=== PATIENT | female | born 1990 | race Caucasian/White ===

== ENCOUNTER 2020-01-28 04:59 | Inpatient (IN) | payer BC, MEDICAID, SELFPAY ==
[2020-01-28] VITALS (48 sets, daily range): BP systolic 62–123; BP diastolic 50–77; PULSE 85–125; RESP 16; TEMP 36.7–37.4; O2SAT 99–100; BMI 27.2
--- NOTE | 2020-01-28 04:59 | LDADM ---
This patient, Patricia Arriaga, was admitted to Labor/Delivery/Recovery 106 on 01/28/20 at 04:59. Plans for labor, pain management and were discussed with patient. Patient/family oriented to hospital policies and general routines including ID bracelet, bed and alarms, visiting hours, pain management, procedures, bathroom and other care routines, personal items, smoking policy, room service/diet and guest tray routines, infant security routines, and visiting hours. Patient/Family are encouraged to report perceived risks to care and to ask questions if they do not understand what they are told or what they should do. See OBIX for further documentation.
[2020-01-28 05:41] LABS: Basophils Absolute Auto 0.1 K/mm3 (0.0-0.1); Basophils Percent Auto 0.4 % (0.2-1.2); Eosinophils Absolute Auto 0.1 K/mm3 (0-0.3); Eosinophils Percent Auto 1.2 % (0-4.4); Hemoglobin 11.4 g/dL (12.0-15.0); Immature Granulocyte Absolute 0.19 K/mm3 (0.00-0.031); Immature Granulocyte Percent A 1.6 % (0-0.5); Lymphocytes Percent Auto 20.2 % (18.3-44.2); Mean Corpuscular HGB Conc 33.5 g/dl (32-36); Mean Corpuscular Hemoglobin 30.5 pg (26-34); Mean Corpuscular Volume 90.9 fl (80-100); Monocytes Absolute Auto 0.9 K/mm3 (0.1-0.6); Monocytes Percent Auto 7.8 % (2.6-8.5); Neutrophils Absolute Auto 8.2 K/mm3 (1.3-6.7); Neutrophils Percent Auto 68.8 % (45.5-73.1); Platelet Count Result 249 k/mm3 (150-375); Red Blood Count 3.74 M/mm3 (4.2-5.4); White Blood Count 11.9 K/mm3 (4.5-10.0)
[2020-01-28] MEDS: LACTATED RINGERS 1,000 ML 125 ML IV CONT ×2 (05:47→08:58)
[2020-01-28 07:21] LABS: Rapid Plasma Reagin Non-Reactive (NonReactive)
--- NOTE | 2020-01-28 08:20 | WPDOBADMIT ---
Obstetrics - Admit Note Admission Note: record reviewed. No pertinent additions to the history and/or any subsequent changes in the physical findings that are not consistent with the expected course of the were found. AROM clear fluid /-2 vertex Additions to the history and/or subsequent changes in the physical findings follow. None.
--- NOTE | 2020-01-28 09:15 | P.PNAN_ITS ---
Anes - Initial Pre Proc Eval Date/Time: 01/28/20 09:15 Surgeon: Mukesh Buchanan MD Pre Op Diagnosis: iol Patient Data Age: 29 Gender: F Height: 1.57 m Weight: 67.5 kg Allergies Allergy/AdvReac Type Severity Reaction Status Date / Time cefaclor Allergy Mild HIVES Verified 01/28/20 06:13 Home Medications Medication Instructions Recorded Confirmed Type PNV cmb#95-ferrous fumarate-FA 1 tablet PO DAILY 01/11/20 01/28/20 History [] cholecalciferol (vitamin D3) 5,000 unit PO 2XW 01/11/20 01/28/20 History [Vitamin D3] ferrous sulfate 325 mg PO DAILY 01/11/20 01/28/20 History Laboratory Tests 01/28/20 01/28/20 01/28/20 05:35 05:35 05:35 WBC 11.9 K/mm3 H K/mm3 (4.5-10.0) RBC 3.74 M/mm3 L M/mm3 (4.2-5.4) Hgb 11.4 g/dL L g/dL (12.0-15.0) Hct 34.0 % L % (37.0-47.0) MCV 90.9 fl fl (80-100) MCH 30.5 pg pg (26-34) MCHC 33.5 g/dl g/dl (32-36) RDW 14.0 % % (11.5-14.5) Plt Count 249 k/mm3 k/mm3 (150-375) MPV 10.0 fl fl (7.4-10.4) Immature Gran % (Auto) 1.6 % H % (0-0.5) Neut % (Auto) 68.8 % % (45.5-73.1) Lymph % (Auto) 20.2 % % (18.3-44.2) Crockett % (Auto) 7.8 % % (2.6-8.5) Eos % (Auto) 1.2 % % (0-4.4) Baso % (Auto) 0.4 % % (0.2-1.2) Lymph # (Auto) 2.40 K/mm3 K/mm3 (0.9-3.2) Crockett # (Auto) 0.9 K/mm3 H K/mm3 (0.1-0.6) Eos # (Auto) 0.1 K/mm3 K/mm3 (0-0.3) Baso # (Auto) 0.1 K/mm3 K/mm3 (0.0-0.1) Abs Immat Gran (auto) 0.19 K/mm3 H K/mm3 (0.00-0.031) Absolute Neuts (auto) 8.2 K/mm3 H K/mm3 (1.3-6.7) Absolute Nucleated RBC 0.0 K/mm3 K/mm3 (0.0-0.012) Nucleated RBC % 0.0 % % (0.0-0.2) RPR Non-reactive (NonReactive) Blood Type O Negative Antibody Screen Negative Patient hx anesthesia problems: post op nausea/vomiting Family hx anesthesia problems: none [facility] Family History Family History (Updated 01/11/20 @ 15:31 by Dasha Villegas RN) Other Unknown family medical history Social History Social History Smoking status: Never smoker Substance use: never Spiritual care concerns: No Anes - Eval Final PreProcedure Day of Procedure 01/28/20 09:15 Patient weight: overweight Heart: regular rate and rhythm Lungs: clear to auscultation and normal air movement Airway: Mallampati scale class II Neurological: alert and oriented Last oral intake: >/= 8 hours ASA classification: II Emergent: no Anesthetic plan: proceed Anesthesia type and monitoring: regional epidural Informed Consent: The patient's anesthetic plan and its attendant risks and benefits were discussed with the patient/family/POA. Questions were solicited and answers provided to the satisfaction of the patient/family/POA.
[2020-01-28] MEDS: ONDANSETRON INJ 4 MG/2 ML VIAL IV PUSH (10:40)
--- NOTE | 2020-01-28 11:22 | P.PCNOB_ITS ---
OB - Delivery Note Procedure Delivery date: 01/28/20 Procedure: events: Labor Induction Induction method: AROM and per pitocin protocol Delivery monitor: external FHT and external uterine Route of delivery: Estimated blood loss (mL): 200 [place] Baby Date of : 01/28/20 Time of : 11:10 Weeks of gestation at delivery: 39 gender: Female Weight (pounds): 6 Weight (ounces): 9 presentation: vertex position: Left Occiput Anterior Placenta delivery description: Spontaneous cord vessel description: 3 Vessels and Clamped/Cut score one minute: 8 score five minutes: 9
[2020-01-28] MEDS: BENZOCAINE 20% AER SPR (*SP) 56 GM CAN 1 SPRAY TOPICAL ×2 (12:28→17:10)
--- NOTE | 2020-01-28 14:17 | PC.NURSE ---
Patient transferred to post room # 279 via wheelchair. Support person present. Oriented to unit, room, information board, rooming in, admission packet and security measures. Patient verbalizes understanding.
[2020-01-28] MEDS: LANOLIN (LANSINOH) 7.5 GM CREAM 1 APPLIC TOPICAL (17:10)
[2020-01-28] MEDS: WITCH HAZEL 40 PADS 1 PAD TOPICAL ×2 (17:10→17:49)
[2020-01-28] MEDS: IBUPROFEN 600 MG TABLET PO (17:48)
[2020-01-28] MEDS: DOCUSATE SODIUM 100 MG CAPSULE PO (17:48)
[2020-01-29] MEDS: IBUPROFEN 600 MG TABLET PO ×2 (04:45→17:23)
[2020-01-29 05:17] LABS: Hematocrit 30.8 % (37.0-47.0)
[2020-01-29 07:40] VITALS: BP 107/73; PULSE 100; RESP 16; TEMP 37.3; O2SAT 100
--- NOTE | 2020-01-29 09:06 | WPDANLDPN2 ---
Anes-Prog Note L&D Date/Time: 01/29/20 09:06 Comfortable throughout: labor and delivery Neuraxial method: epidural Epidural/Spinal procedure site: clean & non-tender Neuro status: Neuro function grossly intact. Cardiovascular status: normal Respiratory status: normal Airway patency: baseline Mental status: baseline Post-Op hydration status: normal Vital Signs: Last Vital Signs Temp 99.2 F 01/29/20 07:40 Pulse 100 01/29/20 07:40 Resp 16 01/29/20 07:40 BP 107/73 01/29/20 07:40 Pulse Ox 100 01/29/20 07:40 I/O: Intake & Output 01/28/20 01/29/20 01/29/20 23:59 07:59 15:59 Intake Total 500 Balance 500 Post-procedural complaints: none Patient feedback: Patient satisfied with anesthetic care.
[2020-01-29] MEDS: MULTIVIT/MIN/PREN/FOL AC/IRON TABLET 1 TAB PO (09:11)
--- NOTE | 2020-01-29 12:00 | PC.NURSE ---
Mother cano duke for assist with feeding due to pain with nursing. Reviewed infant feeding cues, frequencies, duration of feedings, feeding elimination flow sheet, and signs of adequate intake. Demonstrated stimulation techniques to wake for feeding. Assisted with infant to breast. Reviewed positioning/alignment in cross cradle, holding breast in U hold and guided asymmetrical latch on. Discussed rational for each. was able to latch correctly. nursed eagerly, with steady draws and frequent swallowing noted. Reviewed signs of a correct latch, effective nursing and suck swallow ratio. Infant would draw back while nursing to shallow latch, with mother reporting discomfort. Demonstrated how to adjust latch more deeply while feeding. Mother was able to adjust latch reporting no discomfort. Nipple care reviewed. Instructed mother to call out for RN assistance if she is unable to latch for feeding or she has discomfort with nursing. Instructed feeding should be initiated three hours from start of last feeding or if feeding cues are noted before. Mother voiced understanding of information shared. Mother is feeding as required and waking infant to feed if needed. Infant has had 8 effective feedings in the past 24 hours, and is currently meeting outcomes for weight, output, jaundice and feeding frequencies. Mother states she feels confident to continue effective at home. Reviewed transition to breast milk, signs of adequate intake, and engorgement/relief. Instructed to call ICP if intake/output less than required. Reviewed regular medications mother is taking. Information provided per [facility]. Reviewed community resources on the [facility] website and in the Mom/Baby guide. Information on outpatient services provided. Mother has no further questions at this time.
--- NOTE | 2020-01-29 12:33 | PM.DS ---
DS: Diagnosis Admitting Diagnosis Admitting Diagnosis: DS: Summary Status at Discharge Overall status at discharge: patient is progressing back to baseline Time Spent with Patient Time attestation: Total time spent providing and/or coordinating discharge services: Exam Const: General: no acute distress GI: GI Palp: Yes Soft to palpation DS: Data Data Completed and Pending Labs on day of discharge: Labs from last 24 hours 01/29/20 04:42 Hgb 10.0 L Hct 30.8 L Discharge Plan Discharge Attending physician on discharge: Mkuesh Buchanan Consulting providers: Vincent Raymond Discharging Clinician: Piper Thomas Anticipated Discharge Date/Time: 01/30/20 11:57 Patient Disposition: Home, Self-Care Activity: may shower and pelvic rest Diet: as tolerated Discharge Instructions: Education: Mom and Baby Guide Given to: Mother Follow-Up: Call your delivering provider's office for an appointment to be seen in: 6 Weeks Mom and baby should come to the [facility] for the follow-up appointment. Appointment Date/Time: February 01, 2020 at 10:00 am What to expect at your follow-up visit: Physical Assessment Call [phone] if you are unable to keep your appointment time. BREAST CARE: 1. Wear a snug supportive bra. 2. For engorgement discomfort: Breast Feeding: A. Apply warm moist washcloths B. Express milk as needed to relieve engorgement C. Wear loose clothing 3. For sore nipples: A. Identify correct latch-on B. Apply warm moist washcloths before and after nursing C. Air dry nipples after nursing D. May apply Lansinoh cream to nipples EPISIOTOMY/PERINEAL CARE: 1. Until bleeding stops, use your carolyn bottle after urinating 2. Change your pad frequently throughout the day 3. You may take sitz baths several times a day (fill your bathtub with warm water and soak for 20 minutes.) Do NOT bathe in the water 4. No tub baths until seen by your physician - You may shower ACTIVITY: 1. Rest as much as possible. 2. Do not exercise or lift anything heavier than your baby (such as laundry or other children.) 3. Avoid stairs or driving as much as possible. 4. Do not put anything into the vagina. No douching, tampons, or sexual activity until seen by physician. NOTIFY PHYSICIAN IF YOU HAVE ANY QUESTIONS OR IF ANY OF THE FOLLOWING SYMPTOMS OCCUR: 1. If your perineum becomes red, swollen, or more painful than what you have experienced in the hospital. 2. If your vaginal bleeding becomes foul smelling. 3. If your vaginal bleeding becomes more heavy than a period or if your bleeding changes from pink to bright red. However, you may pass an occasional walnut-sized clot once or twice for the first week . 4. If you experience a sharp, shooting pain in you calves. 5. If you discover a hard, reddened area on your breast or if you experience flu-like symptoms. DIET: 1. Eat regular, well-balanced meals. 2. Drink plenty of fluids daily. If , drink to thirst. Stand Alone Forms: General Discharge Information Follow-up/Referrals: Piper Thomas MD [Physician] - 6 Weeks Discharge Medications: New Slynd 4 mg (28) tablet 4 mg PO DAILY 24 Days Qty: 24 RF: 6 Continued ferrous sulfate 325 mg (65 mg iron) Tablet 325 mg PO DAILY RF: 0 cholecalciferol (vitamin D3) [Vitamin D3] 125 mcg (5,000 unit) Tablet 5,000 unit PO 2XW RF: 0 PNV cmb#95-ferrous fumarate-FA [] 28 mg iron- 800 mcg Tablet 1 tablet PO DAILY RF: 0 Date of admission: 01/28/20 04:59 Primary Care Provider: PHYSICIAN,SECURITY FIELD SUPERVISOR Admitting Provider: Mukesh Buchanan Discharge Date/Time: 01/30/20 14:20 Attending physician on admission: Piper Thomas Condition: Stable
--- NOTE | 2020-01-29 12:35 | PM.OBPNVD ---
OB - PN: Subj Subjective Date/time seen: 01/29/20 12:35 S: doing well no complaints breast feeding baby. minimal bleeding OB - PN: Obj Data Labs CBC & Chem 7: 01/29/20 04:42 Labs: Laboratory Results - last 24 hr 01/29/20 04:42 Hgb 10.0 L Hct 30.8 L OB - PN A/P Assessment and Plan (1) (normal spontaneous vaginal delivery): Code(s): O80 - Encounter for full-term uncomplicated delivery Status: Acute Assessment and Plan: continue with pp care. Time Spent With Patient Time: Total time spent is greater than 50% in coordination of care (as documented) at patient's floor/unit and/or counseling patient: Exam GI: Other: AT umbilicus
[2020-01-29 20:20] VITALS: BP 107/71; PULSE 95; RESP 15; TEMP 37.2; O2SAT 97
[2020-01-30 08:00] VITALS: BP 94/63; PULSE 87; RESP 18; TEMP 36.7; O2SAT 100
[2020-01-30] MEDS: MULTIVIT/MIN/PREN/FOL AC/IRON TABLET 1 TAB PO (08:26)
[2020-01-30] MEDS: IBUPROFEN 600 MG TABLET PO (08:26)
--- NOTE | 2020-01-30 11:17 | PC.NURSE ---
Patient viewed the discharge video Mother & Baby Care, The First Two Weeks . Patient was given the opportunity and encouraged to ask questions. Patient verbalized understanding of information shared and has been given the mother/baby guide for home reference.
--- NOTE | 2020-01-30 11:56 | PM.OBPNVD ---
OB - PN: Subj Subjective Date/time seen: 01/30/20 11:56 Patient comments: no complaints baby status: doing well and nursing well OB - PN: Obj Data Labs CBC & Chem 7: 01/29/20 04:42 OB - PN A/P Plan day: 2 Plan: routine care, discharge home, follow up 6 weeks and other (Plans OC's) Time Spent With Patient Time: Total time spent is greater than 50% in coordination of care (as documented) at patient's floor/unit and/or counseling patient: Exam : Bimanual exam- vagina & uterus: other (Uterus firm, nt @U)
[2020-02-01 10:10] VITALS: BP 112/72; PULSE 100; RESP 20; TEMP 37.1; O2SAT 99
== END 2020-01-30 14:20 | disposition home or self-care (01) | DRG 807 ==
LOC: ANHLDR 08:46 → ANHOB2 16:18 → ANHLDR 02-02 10:59 → ANHOB2 02-02 10:59
PROVIDERS: Admitting Provider Obstetrics & Gynecology; Referring Provider Emergency Medicine; Visit Provider Obstetrics & Gynecology Gynecology
DX: O80 Encounter for full-term uncomplicated delivery (principal); Z37.0 Single live birth; Z3A.39 39 weeks gestation of pregnancy; Z23 Encounter for immunization
CPT/HCPCS: 36415; 85014; 85018; 85025; 86592; 86850; 86900; 86901; A9270; J2405; J2590; J2795; J7120